=== PATIENT | male | born 1950 | race Caucasian/White ===

== ENCOUNTER 2016-03-24 09:53 | Emergency (ER) | payer OTHER ==
--- NOTE | 2016-03-24 10:48 | DIAGNOSTIC IMAGING REPORT ---
PROCEDURE: XR CHEST 1 VIEW INDICATION: PALPITATIONS TECHNIQUE: Portable AP view 10:24 a.m. COMPARISON: None. FINDINGS: Lungs are clear. Heart and mediastinum are normal. Thorax is normal. IMPRESSION: 1. Negative chest.
--- NOTE | 2016-03-24 12:53 | ED NURSING NOTES ---
Clinical Report - Nurses [place] [address] [place] [address] 03/24/2016 9:53 Patient: WAN BASILIO TRIAGE Triage time 09:59. Acuity: LEVEL 3. Chief Complaint: PALPITATIONS. Alert. No acute distress. RUPINDER COMA SCORE: Shiner Coma Scale: 15- eyes open spontaneously (4); best verbal response- oriented x 4 (5); best motor response- obeys commands (6). --10:11 Yadi Ferguson R.N. 09:59 03/24/16. BP: 136/73. HR: 102. RR: 11. O2 saturation: 98%. Temp: 98.3 F (oral). Pain level now: 0/10. --10:11 Yadi Ferguson R.N. Weight: 83.9 kg stated. Height/Length: 60 inches Per Patient. BMI: 36.1. --10:02 Yadi Ferguson R.N. Medications Flecainide Acetate Oral (Tablet 100 mg), 2x a day (1 tab AM 1 1/2 tab PM). --10:07 Yadi Ferguson R.N. Simvastatin Oral (Tablet 20 mg), daily. --10:08 Yadi Ferguson R.N. Metoprolol Tartrate Oral (Tablet 25 mg), daily. --10:09 Yadi Ferguson R.N. Hydrochlorothiazide Oral 25 mg, daily. --10:10 Yadi Ferguson R.N. Cozaar Oral 50 mg, daily. --10:10 Yadi Ferguson R.N. ASA Oral 81 mg, daily. --10:10 Yadi Ferguson R.N. (list). --10:11 Yadi Ferguson R.N. Allergies Sulfa Antibiotics. --10:01 Yadi Ferguson R.N. History Arrived by private vehicle. Historian: patient. Accompanied by family. Primary physician (James South). Onset. (about 2 - 3 days). SOCIAL HX: Smoker- current status unknown (no). No alcohol use or drug use. FALL RISK ASSESSMENT: Fall risk assessment completed. No fall risk identified. FUNCTIONAL ASSESSMENT: Functional assessment: no impairments noted. LEARNING NEEDS ASSESSMENT: The learning needs assessment revealed no barriers. --10:11 Yadi Ferguson R.N. PROBLEMS: Atrial Fibrillation. --10:02 Yadi Ferguson R.N. ADDITIONAL SURGERIES: no known surgeries. Assessment GENERAL / NEURO / PSYCH: Alert. Oriented X 4. Appears in no acute distress. Patient appears calm and cooperative. RESPIRATORY: Respirations not labored. SKIN: Skin is warm and dry. --10:11 Yadi Ferguson R.N. Interventions ID and allergy band on patient. To treatment room. --10:11 Yadi Ferguson R.N. PHYSICAL ASSESSMENT 10:12 03/24/16. To room via wheelchair. Patient gowned. GENERAL / NEURO / PSYCH: Alert. Oriented X 4. Appears in no acute distress. RESPIRATORY: Respirations not labored. CVS: Cardiac rhythm: atrial fibrillation. SKIN: Skin is warm and dry. --10:12 Yadi Ferguson R.N. NURSING PROGRESS NOTES 10:13 03/24/16. teletypesetter monitor, pulse oximeter and NIBP monitor placed on patient. Patient gowned. Head of bed elevated. Call light placed in reach. Side rails up x 1. Bed placed in lowest position. Brakes of bed on. --10:13 Yadi Ferguson R.N. 10:31 03/24/2016 Site #1 started via IV in the right antecubital space with an 20g angiocath, with aseptic technique and good blood return; one attempt. Blood drawn: rainbow set. Labeled in the presence of the patient and sent to the lab. Saline lock flushed with 10 mL saline. --10:31 Yadi Ferguson R.N. 10:40. Care transferred and report received (Yadi, LEONARDO). --11:12 Caryl Pace R.N. 11:13 03/24/16. BP: 101/68 taken on the left arm, while lying. HR: 68. RR: 18. O2 saturation: 96%. Pain level now: 010. --11:15 Caryl Pace R.N. ( EKG records retrieved from [facility] (Dr. Ramirez's office) and [facility] (Dr. Smith's office)). --11:29 Jenn Huang, MORALES Tech1 11:59 03/24/2016 KCL (Potassium Chloride ER) PO 10 meq given. Allergies verified and confirmed 5 rights. --11:59 Caryl Pace R.N. DISPOSITION / DISCHARGE 13:30. Condition at departure: improved. No learning barriers present. Patient verbalized understanding. Written instructions provided in Icelandic. The patient was discharged home and accompanied by lab aide. He left the Emergency Department ambulatory and via private vehicle. Porter Luggage driving. Medication list reviewed and validated. --13:52 Caryl Pace R.N. 13:30 03/24/16. BP: 98/59. HR: 75. RR: 16. O2 saturation: 100% on room air. Temp: 98.5 F. 12:38 03/24/16. BP: 100/56. HR: 73. RR: 18. O2 saturation: 97% on room air. 11:13 03/24/16. BP: 101/68 taken on the left arm, while lying. HR: 68. RR: 18. O2 saturation: 96%. Pain level now: 0/10. 09:59 03/24/16. BP: 136/73. HR: 102. RR: 11. O2 saturation: 98%. Temp: 98.3 F (oral). Pain level now: 0/10. --13:52 Caryl Pace R.N. Locked/Released at 03/24/2016 13:52 by Caryl Pace R.N.
--- NOTE | 2016-03-24 12:53 | ED NURSING NOTES ---
Clinical Report - Nurses [place] [address] [place] [address] 03/24/2016 9:53 Patient: WAN BASILIO TRIAGE Triage time 09:59. Acuity: LEVEL 3. Chief Complaint: PALPITATIONS. Alert. No acute distress. RUPINDER COMA SCORE: Clyman Coma Scale: 15- eyes open spontaneously (4); best verbal response- oriented x 4 (5); best motor response- obeys commands (6). --10:11 Yadi Ferguson R.N. 09:59 03/24/16. BP: 136/73. HR: 102. RR: 11. O2 saturation: 98%. Temp: 98.3 F (oral). Pain level now: 0/10. --10:11 Yadi Ferguson R.N. Weight: 83.9 kg stated. Height/Length: 60 inches Per Patient. BMI: 36.1. --10:02 Yadi Ferguson R.N. Medications Flecainide Acetate Oral (Tablet 100 mg), 2x a day (1 tab AM 1 1/2 tab PM). --10:07 Yadi Ferguson R.N. Simvastatin Oral (Tablet 20 mg), daily. --10:08 Yadi Ferguson R.N. Metoprolol Tartrate Oral (Tablet 25 mg), daily. --10:09 Yadi Ferguson R.N. Hydrochlorothiazide Oral 25 mg, daily. --10:10 Yadi Ferguson R.N. Cozaar Oral 50 mg, daily. --10:10 Yadi Ferguson R.N. ASA Oral 81 mg, daily. --10:10 Yadi Ferguson R.N. (list). --10:11 Yadi Ferguson R.N. Allergies Sulfa Antibiotics. --10:01 Yadi Ferguson R.N. History Arrived by private vehicle. Historian: patient. Accompanied by family. Primary physician (James South). Onset. (about 2 - 3 days). SOCIAL HX: Smoker- current status unknown (no). No alcohol use or drug use. FALL RISK ASSESSMENT: Fall risk assessment completed. No fall risk identified. FUNCTIONAL ASSESSMENT: Functional assessment: no impairments noted. LEARNING NEEDS ASSESSMENT: The learning needs assessment revealed no barriers. --10:11 Yadi Ferguson R.N. PROBLEMS: Atrial Fibrillation. --10:02 Yadi Ferguson R.N. ADDITIONAL SURGERIES: no known surgeries. Assessment GENERAL / NEURO / PSYCH: Alert. Oriented X 4. Appears in no acute distress. Patient appears calm and cooperative. RESPIRATORY: Respirations not labored. SKIN: Skin is warm and dry. --10:11 Yadi Ferguson R.N. Interventions ID and allergy band on patient. To treatment room. --10:11 Yadi Ferguson R.N. PHYSICAL ASSESSMENT 10:12 03/24/16. To room via wheelchair. Patient gowned. GENERAL / NEURO / PSYCH: Alert. Oriented X 4. Appears in no acute distress. RESPIRATORY: Respirations not labored. CVS: Cardiac rhythm: atrial fibrillation. SKIN: Skin is warm and dry. --10:12 Yadi Ferguson R.N. NURSING PROGRESS NOTES 10:13 03/24/16. vehicle monitor technician, pulse oximeter and NIBP monitor placed on patient. Patient gowned. Head of bed elevated. Call light placed in reach. Side rails up x 1. Bed placed in lowest position. Brakes of bed on. --10:13 Yadi Ferguson R.N. 10:31 03/24/2016 Site #1 started via IV in the right antecubital space with an 20g angiocath, with aseptic technique and good blood return; one attempt. Blood drawn: rainbow set. Labeled in the presence of the patient and sent to the lab. Saline lock flushed with 10 mL saline. --10:31 Yadi Ferguson R.N. 10:40. Care transferred and report received (Yadi, LEONARDO). --11:12 Caryl Pace R.N. 11:13 03/24/16. BP: 101/68 taken on the left arm, while lying. HR: 68. RR: 18. O2 saturation: 96%. Pain level now: 010. --11:15 Caryl Pace R.N. ( EKG records retrieved from [facility] (Dr. Ramirez's office) and [facility] (Dr. Smith's office)). --11:29 Jenn Huang, MORALES Tech1 11:59 03/24/2016 KCL (Potassium Chloride ER) PO 10 meq given. Allergies verified and confirmed 5 rights. --11:59 Caryl Pace R.N. DISPOSITION / DISCHARGE 13:30. Condition at departure: improved. No learning barriers present. Patient verbalized understanding. Written instructions provided in Ukrainian. The patient was discharged home and accompanied by outsole cutter machine. He left the Emergency Department ambulatory and via private vehicle. Vehicle Body Builder driving. Medication list reviewed and validated. --13:52 Caryl Pace R.N. 13:30 03/24/16. BP: 98/59. HR: 75. RR: 16. O2 saturation: 100% on room air. Temp: 98.5 F. 12:38 03/24/16. BP: 100/56. HR: 73. RR: 18. O2 saturation: 97% on room air. 11:13 03/24/16. BP: 101/68 taken on the left arm, while lying. HR: 68. RR: 18. O2 saturation: 96%. Pain level now: 0/10. 09:59 03/24/16. BP: 136/73. HR: 102. RR: 11. O2 saturation: 98%. Temp: 98.3 F (oral). Pain level now: 0/10. --13:52 Caryl Pace R.N. Locked/Released at 03/24/2016 13:52 by Caryl Pace R.N.
--- NOTE | 2016-03-24 12:53 | ED ORDER SUMMARY ---
..... Patient: WAN BASILIO OrderSheet [facility] VisitID: [id number] [address] [place] [address] 65y, M Registration Date/Time: 03/24/2016 ORDER SHEET Weight: 83.9 kg (stated) Allergies: Sulfa Antibiotics GENERAL ORDERS: Chest 1V Urgent (10:03/24/2016 Clary MCKINNEY) (Ack 10:26 KSouse ER Tech1) (10:29 Chris R.N.) Bobbin Coil Winder (Continuous) (10:03/24/2016 Clary MCKINNEY) (10:29 Chris R.N.) CBC w Diff Urgent (10:03/24/2016 Clary MCKINNEY) (10:29 Chris R.N.) CMP Urgent (10:03/24/2016 Clary MCKINNEY) (10:29 Chris R.N.) UA-Culture if indicated Urgent (10:03/24/2016 Clary MCKINNEY) (Ack 10:36 NHouse ER Tech1) (11:45 NHouse ER Tech1) PT with INR Urgent (10:03/24/2016 Clary MCKINNEY) (10:29 Chris R.N.) PTT Urgent (10:03/24/2016 Clary MCKINNEY) (10:29 Chris R.N.) BNP Urgent (10:03/24/2016 Clary MCKINNEY) (10:29 Chris R.N.) Amylase Urgent (10:03/24/2016 Clary MCKINNEY) (10:29 Chris R.N.) Lipase Urgent (10:03/24/2016 Clary MCKINNEY) (Ack 10:26 KSouse ER Tech1) (10:29 Chris R.N.) CPK Urgent (10:03/24/2016 Clary MCKINNEY) (Ack 10:26 KSouse ER TechCheryl) (10:29 Chrsi R.N.) Troponin-I Urgent (10:03/24/2016 Clary MCKINNEY) (Ack 10:26 KSouse ER Tech1) (10:29 Chris R.N.) TSH Urgent (10:03/24/2016 Clary MCKINNEY) (Ack 10:26 NHouse ER Tech1) (10:29 Chris Moreno.N.) Oxygen (2 L/min) (NC) (10:18 03/24/2016 Clary MCKINNEY) (10:33 Chris Moreno.N.) Pulse oximeter (10:03/24/2016 Clary MCKINNEY) (10:29 Chris Moreno.N.) EKG - ER Stat (10:03/24/2016 Clary MCKINNEY) (10:29 Chris Moreno.N.) MEDICATION ORDERS: KCl PO 20 meq (NOW) (11:32 03/24/2016 Clary MCKINNEY) (Ack 11:41 Jimbo R.N.) (11:59 Jimbo R.N.) IV FLUIDS: IV Saline Lock (:03/24/2016 Clary MCKINNEY) (10:33 Chris R.NPhyllis) ORDER SHEET NOTES: [Electronically signed by Caryl Pace R.N. (13:52 03/24/2016)] [Electronically signed by Abraham Tomas MD (16:41 03/24/2016)] [Electronically locked/signed by Caryl Pace R.N. (13:52 03/24/2016)]
--- NOTE | 2016-03-24 12:53 | ED CLINICAL REPORT ---
Clinical Report - Physicians/Mid Levels [facility] [address] [place] [address] 03/24/2016 9:53 Patient: WAN BASILIO Time Seen: 10:17. Arrived- By private vehicle. Historian- patient. HISTORY OF PRESENT ILLNESS Chief Complaint: PALPITATIONS. It is described as a pounding heart beat, an irregular heart beat and missing beats. He complains of dizziness. This started about 4 days ago and is still present. Can not recall activity at onset. History of decongestants use prior to onset. It has been intermittent and waxing/waning. No chest pain or discomfort or difficulty breathing. He has had dizziness. REVIEW OF SYSTEMS The patient has had fever (recently - he attributes this to his recent cold). He has had a mild cough (he attributes this to a recent cold that he says is improving). He has had mild pedal edema involving the right and left leg (chronically). It has been similar to previous symptoms. All systems otherwise negative, except as recorded above. 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 Problems: Hypertension. Atrial Fibrillation. Additional Surgeries: no known surgeries. Medications: ASA Oral 81 mg, daily. Cozaar Oral 50 mg, daily. Hydrochlorothiazide Oral 25 mg, daily. Metoprolol Tartrate Oral (Tablet 25 mg), daily. Simvastatin Oral (Tablet 20 mg), daily. Flecainide Acetate Oral (Tablet 100 mg), 2x a day (1 tab AM 1 1/2 tab PM). Allergies: Sulfa Antibiotics. SOCIAL HISTORY Smoker- current status unknown. No alcohol use. Residence: [place] Is a local resident. FAMILY HISTORY Premature onset heart disease in first-degree relative (sibling), grandparent. ADDITIONAL NOTES The nursing notes have been reviewed. PHYSICAL EXAM Vital Signs: 03/24/2016 09:59 BP: 136/73. HR: 102. RR: 11. O2 saturation: 98%. Temp: 98.3 F. Pain level now: 0/10. Appearance: Alert. Eyes: Pupils equal, round and reactive to light. ENT: Pharynx normal. Neck: Normal inspection. Neck supple. No JVD. CVS: Normal heart rate and rhythm. Heart sounds normal. Respiratory: No respiratory distress. Breath sounds normal. Abdomen: Soft and nontender. Bowel sounds normal. No organomegaly. No mass. Back: Normal external inspection. Skin: Skin warm and dry. Normal skin color. Normal skin turgor. Extremities: Extremities exhibit normal ROM. No calf tenderness. No lower extremity edema. Neuro: No motor deficit. No sensory deficit. LABS, X-RAYS, AND EKG EKG: Rate: 79. Ectopic beats. Premature atrial contractions. First-degree atrioventricular block. Incomplete RBBB. Q waves in lead III, aVF, V1 and V2. Non-specific ST segment / T wave abnormalities. Changes present when compared to prior EKG. () No new ischemic changes present. Chest X-ray: No acute disease. The X-rays were independently viewed by me. Laboratory Tests: UA-Culture if indicated: (KRIS: 03/24/2016 11:40) ( [facility] 03/24/2016 12:14) Final results Test Result Flag Units (Reference) URINE COLOR YELLOW URINE APPEARANCE CLEAR URINE GLUCOSE NEGATIVE (NEGATIVE) URINE BILIRUBIN NEGATIVE (NEGATIVE) URINE KETONE NEGATIVE (NEGATIVE) URINE SPECIFIC GRAVITY 1.010 (1.010-1.030) URINE PH 6.0 (5.0-8.0) URINE PROTEIN NEGATIVE (NEGATIVE) URINE UROBILINOGEN 0.2 EU/dL (0.2-1.0) URINE NITRITE NEGATIVE (NEGATIVE) URINE BLOOD NEGATIVE (NEGATIVE) URINE LEUK ESTERASE NEGATIVE (NEGATIVE) URINE RBC NONE SEEN rbc/hpf (0-1) URINE WBC NONE SEEN wbc/hpf (0-1) URINE EPITHELIAL CELLS 1-3 EPI/hpf (0-5) URINE BACTERIA NONE SEEN (NONE SEEN) URINE COMMENT CULT NOT INDICATED URINE CULTURES ARE SET-UP BASED ON THE FOLLOWING CRITERIA:POSITIVE NITRITEPOSITIVE LEUKOCYTE ESTERASEGREATER THAN 10 WHITE BLOOD CELLSMODERATE (2+) OR GREATER BACTERIA CBC w Diff: (KRIS: 03/24/2016 10:15) ( [facility] 03/24/2016 11:22) Final results Test Result Flag Units (Reference) WHITE BLOOD COUNT 6.3 K/uL (4.5-11.5) RED BLOOD COUNT 5.39 M/uL (4.50-5.90) HEMOGLOBIN 17.0 gm/dL (13.5-17.5) HEMATOCRIT 49.0 % (41.0-53.0) MEAN CELL VOLUME 91 fL (80-100) MEAN CORPUSCULAR HGB 32 pg (26-34) MEAN CORPUSCULAR HGB CONC 35 g/dL (31-37) RED CELL DISTRIBUTION WIDTH 13.0 % (11.6-14.8) PLATELET COUNT 234 K/uL (150-400) POLY % 34 L % (50-75) BAND % 8 % (0-8) LYMPH 44 H % (25-40) MONO 13 % (3-14) EOSINOPHIL % 0 % (0-4) BASOPHIL % 1 % (0-2) METAMYELOCYTE % 0 % (0-1) MYELOCYTE 0 % (0-1) OTHER CELL TYPE 0 RBC MORPHOLOGY NORMAL RBC POP PT with INR: (KRIS: 03/24/2016 10:15) ( [facility] 03/24/2016 10:55) Final results Test Result Flag Units (Reference) INR 1.0 (0.8-1.2) Low Intensity Therapy: INR 1.5-2.0 PT range 18.5-23.1Mod.Intensity Therapy: INR 2.0-3.0 PT range 23.1-31.5High Intensity Therapy: INR 2.5-3.5 PT range 27.4-35.5High Intensity Therapy 2: INR 3.0-4.0 PT range 31.5-39.3 APTT 30 SECONDS (24-34) BNP: (KRIS: 03/24/2016 10:15) ( [facility] 03/24/2016 11:08) Final results Test Result Flag Units (Reference) B-TYPE NATRIURETIC PEPTIDE 30.5 pg/ml (5-100) CMP: (KRIS: 03/24/2016 10:15) ( [facility] 03/24/2016 11:03) Final results Test Result Flag Units (Reference) GLUCOSE 110 mg/dL (70-110) BUN 20 H mg/dL (7-18) CREATININE 1.2 mg/dL (0.6-1.3) Estimated GFR >60 mL/min Estimated GFR- >60 mL/min Note: Persistent reduction over 3 months in eGFR<60 mL/min/1.73 m2 defines CKD. Patients with eGFR values>=60 mL/min/1.73 m2 may also have CKD if evidence ofpersistent proteinuria. Additional information may be foundat www.kidney.org. SODIUM 137 mmol/L (136-145) POTASSIUM 3.2 L mmol/L (3.5-5.1) CHLORIDE 99 mmol/L (98-107) CARBON DIOXIDE 30 mmol/L (21-32) CALCIUM 8.8 mg/dL (8.5-10.1) TOTAL PROTEIN 7.8 g/dL (6.4-8.2) ALBUMIN 3.7 g/dL (3.3-5.0) BILIRUBIN, TOTAL 0.7 mg/dL (0.0-1.0) ALKALINE PHOSPHATASE 52 U/L (46-116) AST (SGOT) 18 U/L (15-37) ALT (SGPT) 28 U/L (12-78) LIPASE 107 U/L (73-393) AMYLASE 22 L U/L (25-115) CPK 85 U/L (24-260) TROPONIN I <0.05 ng/mL (0.00-1.5) TROPONIN REFERENCE RANGE:<0.1 NEGATIVE0.1-1.5 INDETERMINANT>1.5 POSITIVE THYROID STIMULATING HORMONE 2.029 uIU/mL (0.30-3.74) . PROGRESS AND PROCEDURES Course of Care: Patient is stable. Patient/family counseled. Old medical records ordered. Old records unavailable. Disposition: Discharged. Condition: stable. CLINICAL IMPRESSION Palpitations Hypokalemia INSTRUCTIONS Warnings: Further evaluation is necessary. GENERAL WARNINGS: Return or contact your physician immediately if your condition worsens or changes unexpectedly, if not improving as expected, or if other problems arise. Your Current Medications: CONTINUE TAKING THE FOLLOWING MEDICATIONS: ASA Oral : 81 mg daily. Cozaar Oral : 50 mg daily. Flecainide Acetate Oral : Tablet 100 mg, 2x a day, 1 tab AM 1 1/2 tab PM. Hydrochlorothiazide Oral : 25 mg daily. Metoprolol Tartrate Oral : Tablet 25 mg, daily. Simvastatin Oral : Tablet 20 mg, daily. Understanding of the discharge instructions verbalized by patient and family. (Electronically signed by Abraham Tomas MD 03/24/2016 16:41)
--- NOTE | 2016-03-24 12:53 | ED ORDER SUMMARY ---
..... Patient: WAN BASILIO OrderSheet [facility] VisitID: [id number] [address] [place] [address] 65y, M Registration Date/Time: 03/24/2016 ORDER SHEET Weight: 83.9 kg (stated) Allergies: Sulfa Antibiotics GENERAL ORDERS: Chest 1V Urgent (10:03/24/2016 Clary MCKINNEY) (Ack 10:26 NDouse ER Tech1) (10:29 Chris R.N.) Jewel Cupping Machine Operator (Continuous) (10:03/24/2016 Clary MCKINNEY) (10:29 Chris R.N.) CBC w Diff Urgent (10:03/24/2016 Clary MCKINNEY) (10:29 Chris R.N.) CMP Urgent (10:03/24/2016 Clray MCKINNEY) (10:29 Chris R.N.) UA-Culture if indicated Urgent (10:03/24/2016 Clary MCKINNEY) (Ack 10:36 NHouse ER Tech1) (11:45 NHouse ER Tech1) PT with INR Urgent (10:03/24/2016 Clary MCKINNEY) (10:29 Chris R.N.) PTT Urgent (10:03/24/2016 Clary MCKINNEY) (10:29 Chris R.N.) BNP Urgent (10:03/24/2016 Clary MCKINNEY) (10:29 Chris R.N.) Amylase Urgent (10:03/24/2016 Clary MCKINNEY) (10:29 Chris R.N.) Lipase Urgent (10:03/24/2016 Clary MCKINNEY) (Ack 10:26 NDouse ER Tech1) (10:29 Chris R.N.) CPK Urgent (10:03/24/2016 Clary MCKINNEY) (Ack 10:26 NDouse ER TechCheryl) (10:29 Chris R.N.) Troponin-I Urgent (10:03/24/2016 Clary MCKINNEY) (Ack 10:26 NDouse ER Tech1) (10:29 Chris R.N.) TSH Urgent (10:03/24/2016 Clary MCKINNEY) (Ack 10:26 NHouse ER Tech1) (10:29 Chris Moreno.N.) Oxygen (2 L/min) (NC) (10:18 03/24/2016 Clary MCKINNEY) (10:33 Chris Moreno.N.) Pulse oximeter (10:03/24/2016 Clary MCKINNEY) (10:29 Chris Moreno.N.) EKG - ER Stat (10:03/24/2016 Clary MCKINNEY) (10:29 Chris Moreno.N.) MEDICATION ORDERS: KCl PO 20 meq (NOW) (11:32 03/24/2016 Clary MCKINNEY) (Ack 11:41 Jimbo R.N.) (11:59 Jimbo R.N.) IV FLUIDS: IV Saline Lock (:03/24/2016 Clary MCKINNEY) (10:33 Chris R.NPhyllis) ORDER SHEET NOTES: [Electronically signed by Caryl Pace R.N. (13:52 03/24/2016)] [Electronically signed by Abraham Tomas MD (16:41 03/24/2016)] [Electronically locked/signed by Caryl Pace R.N. (13:52 03/24/2016)]
--- NOTE | 2016-03-24 16:41 | ED DISCHARGE INSTRUCTIONS ---
Patient: WAN BASILIO General Instructions [facility] VisitID: [id number] [place] [address] 65y, M Registration Date/Time: 03/24/2016 Palpitations Hypokalemia INSTRUCTIONS Warnings: Further evaluation is necessary. GENERAL WARNINGS: Return or contact your physician immediately if your condition worsens or changes unexpectedly, if not improving as expected, or if other problems arise. Your Current Medications: CONTINUE TAKING THE FOLLOWING MEDICATIONS: ASA Oral : 81 mg daily. Cozaar Oral : 50 mg daily. Flecainide Acetate Oral : Tablet 100 mg, 2x a day, 1 tab AM 1 1/2 tab PM. Hydrochlorothiazide Oral : 25 mg daily. Metoprolol Tartrate Oral : Tablet 25 mg, daily. Simvastatin Oral : Tablet 20 mg, daily. Understanding of the discharge instructions verbalized by patient and family. ADDITIONAL INFORMATION Arrhythmia Electrical impulses cause the normal heart to beat 60 to 100 times a minute. These impulses come from a natural pacemaker deep inside the heart muscle. Each impulse causes the heart muscle to contract. This causes the blood to flow through the heart and out to the tissues and organs of your body. An arrhythmia is a change from the normal speed or pattern of these electrical impulses. This can cause the heart to beat too fast (tachycardia); or too slow (bradycardia); or in an unsteady pattern (irregular rhythm). Symptoms of arrhythmias Different people experience arrhythmias differently. Sometimes they may not have symptoms, but just notice a change in their pulse. Symptoms can include: Fluttering feeling in the chest Shortness of breath Chest pain or pressure Lightheadedness or dizziness Fainting or nearly fainting Palpitations Tiredness, fatigue, or weakness Causes of arrhythmias Arrhythmias are most often due to heart disease such as: Coronary artery disease (arteriosclerosis) Disease of the heart valves Enlarged heart High blood pressure Heart failure Other causes ofarrhythmia include: Certain medicines (such as asthma inhalers and decongestants) Some herbal supplements Cardiac stimulant drugs (such as cocaine, amphetamine, diet pills, certain decongestant cold medicines, caffeine, and nicotine) Excessive alcohol use Medical conditions such as thyroid disease, anemia, anxiety, and panic disorder Arrythmias can often be prevented. The cause and type of arrhythmia determines the best treatment. Sometimes your doctor may want to monitor your heart rate over a 24-hour period or longer. This can help identify the cause of your arrhythmia and find the best treatment. This can be done with a Holter monitor,a portable EKG recording device attached by wires to your chest. You can carry this with you as you perform your routine activities during the monitoring period. Home care Avoid cardiac stimulants (such as cocaine, amphetamine, diet pills, certain decongestant cold medicines, caffeine, and nicotine). If you smoke, stop smoking. Contact your doctor or a local stop-smoking program for help. Tell your doctor about any prescription, astd-ctk-[id number] or herbal medicines you take. These may be affecting your heart rhythm. Follow-up care Follow up with your health care provider or as advised by our staff. If a Holter monitor has been recommended, contact the cardiologistyou have been referred toas soon as you canpick up the device. Other outpatient tests may also be arranged for you at that time. Call 911 This is the fastest and safest way to get to the emergency department. The paramedics can also start treatment on the way to the hospital, if needed. Don'twait until your symptoms are severe to call 911. Other reasons to call 911 besides chest pain include: Chest, shoulder, arm, neck, or back pain Shortness of breath Feeling lightheaded, faint, or dizzy Rapid heart beat Slower than usual heart rate compared to your normal Angina withweakness, dizziness, fainting, heavy sweating, nausea, or vomiting Extreme drowsiness, or confusion Weakness of an arm or leg or one side of the face Difficulty with speech or vision When to seek medical care Remember, things are not always like they are on TV. Sometimes it is not so obvious. You may only feel weak or just "not right." If it is not clear or if you have any doubt, call for advice. Seek help for chest pain, or it feels different from usual, even if your symptoms are mild. Do not drive yourself. Have someone else drive. If no one can drive you, call 911. If your doctor has given you medicines to take when you have symptoms, take them, but do not delay getting help while trying to find them. Do not delay. Fast diagnosis and treatment can prevent or limit the amount of heart damage during a heart attack or stroke. Do not go to your doctor's ofice or a clinic because they will not be able to provide all of the testing or treatment required for this condition. Hypokalemia Hypokalemia means a low level of potassium in the blood. This most often occurs in patients who take diuretics (water pills). It can also occur due to severe vomiting or diarrhea. A mild case usually causes no symptoms. It is only found with blood testing. More severe potassium loss causes generalized weakness, muscle or abdominal cramping, heart palpitations (rapid or irregular heartbeats) and low blood pressure. Home Care: 1) Take any potassium supplements prescribed. 2) Eat foods rich in potassium. The highest amount is found in artichoke, baked potatoes, spinach, cantaloupe, honeydew melon, cod, halibut, salmon, and scallops. White, red, or menendez beans are also very good sources. A modest amount is found in orange juice, bananas, carrots, and tomato juice. 3) Certain types of diuretics (water pills), such as Lasix (furosemide), require that you take potassium supplements for as long as you take the diuretic pills. If you are taking a diuretic, discuss the need for potassium supplements with your doctor. Follow Up with your doctor for a repeat blood test within the next week or as advised by our staff. Get Prompt Medical Attention if any of the following occur: -- Increased weakness -- Feeling dizzy -- Irregular heartbeat, extra beats or very fast heart rate -- Fainting spell You have been given the following additional information: Arrhythmia, Unspecified Hypokalemia (Electronically signed by Abraham Tomas MD 03/24/2016 16:41)
--- NOTE | 2016-03-24 16:41 | ED MAR SUMMARY ---
..... Medication Administration Record Located Within [facility] [address] [place] [address] Patient: WAN BASILIO Visit ID: [id number] 65y, M Weight: 83.9 kg Height/Length: 60 in BMI: 36.1 ALLERGIES: Sulfa Antibiotics Given 11:59 03/24/2016 Caryl Pace R.N. Medication Administered: KCL [PO] (POTASSIUM CHLORIDE ER), Dose: 10 meq PO. Medication Ordered: KCl PO 20 meq (NOW).
--- NOTE | 2016-03-24 16:41 | ED MED RECONCILIATION SUMMARY ---
Patient: WAN BASILIO Medication Reconciliation Report [facility] VisitID: [id number] [address] [place] [address] 65y, M Registration Date/Time: 03/24/2016 Weight: 83.9 kg Height/Length: 60 in. BMI: 36.1 ALLERGIES: Sulfa Antibiotics The patient's Home Medications are listed below: CONTINUE TAKING THE FOLLOWING MEDICATIONS: ASA Oral 81 mg, daily Cozaar Oral 50 mg, daily Flecainide Acetate Oral (100 mg), 2x a day, 1 tab AM1 1/2 tab PM Hydrochlorothiazide Oral 25 mg, daily Metoprolol Tartrate Oral (25 mg), daily Simvastatin Oral (20 mg), daily The source(s) of the original Home Medication information: list The following Medications were given to the patient in the Emergency Department: KCL [PO] PO 10 meq, administered: 03/24/2016 11:59:00 AM The following Medications were prescribed to the patient: None.
--- NOTE | 2016-03-24 16:41 | ED MED RECONCILIATION SUMMARY ---
Patient: WAN BASILIO Medication Reconciliation Report VisitID: [id number] [address] [place] [address] 65y, M Registration Date/Time: 03/24/2016 Weight: 83.9 kg Height/Length: 60 in. BMI: 36.1 ALLERGIES: Sulfa Antibiotics The patient's Home Medications are listed below: CONTINUE TAKING THE FOLLOWING MEDICATIONS: ASA Oral 81 mg, daily Cozaar Oral 50 mg, daily Flecainide Acetate Oral (100 mg), 2x a day, 1 tab AM1 1/2 tab PM Hydrochlorothiazide Oral 25 mg, daily Metoprolol Tartrate Oral (25 mg), daily Simvastatin Oral (20 mg), daily The source(s) of the original Home Medication information: list The following Medications were given to the patient in the Emergency Department: KCL [PO] PO 10 meq, administered: 03/24/2016 11:59:00 AM The following Medications were prescribed to the patient: None.
--- NOTE | 2016-03-24 16:41 | ED MAR SUMMARY ---
..... Medication Administration Record [facility] [address] [place] [address] Patient: WAN BASILIO Visit ID: [id number] 65y, M Weight: 83.9 kg Height/Length: 60 in BMI: 36.1 ALLERGIES: Sulfa Antibiotics Given 11:59 03/24/2016 Caryl Pace R.N. Medication Administered: KCL [PO] (POTASSIUM CHLORIDE ER), Dose: 10 meq PO. Medication Ordered: KCl PO 20 meq (NOW).
== END 2016-03-24 13:30 | disposition home or self-care (01) ==
LOC: ED SRH 09:53
DX: R00.2 Palpitations (principal); E87.6 Hypokalemia; I10 Essential (primary) hypertension; I48.91 Unspecified atrial fibrillation; F17.200 Nicotine dependence, unspecified, uncomplicated; Z79.82 Long term (current) use of aspirin; Z79.899 Other long term (current) drug therapy; Z88.2 Allergy status to sulfonamides
CPT/HCPCS: 90004; 90100; 90616; 91320; 91643; 92235; 92530; 92610; 93140; 94001; 94060; 95059